=== PATIENT | male | born 1955 | race Caucasian/White ===

== ENCOUNTER → 2018-04-21 | Outpatient (CLI) | payer BC ==
[~2018-04-21] MED LIST: IOPAMIDOL 370 MG/ML 200 ML INFUS..BTL INJ ONE; SODIUM CHLORIDE 0.9% 50ML 50 ML ONE
[2018-04-21 09:11] LABS: BLOOD UREA NITROGEN 8 mg/dL (7-26); BUN/CREATININE RATIO 9 (6-25); CREATININE, SERUM 0.86 mg/dL (0.72-1.25); EST GLOMERULAR FILTRATION RATE > 60 ML/MIN (60-)
--- NOTE | 2018-04-21 11:39 | Diagnostic Imaging Report ---
CTA abdomen and pelvis with contrast with bilateral lower extremity runoff Clinical history: Bilateral leg pain, worsening; query stenosis. Comparison: None. Technique: Arterial phase CT abdomen and pelvis and bilateral lower extremities after administration of 100 mL Isovue-370 intravenous contrast. Volume rendered 3-D images of the arterial tree generated on an independent workstation under physician supervision. RADIATION DOSE: DLP: 889 mGy cm Dose modulation, iterative reconstruction, and/or weight based adjustment of the mA/kV was utilized to reduce the radiation dose to as low as reasonably achievable. FINDINGS: VASCULAR: Aortic dimensions: Diaphragmatic hiatus: 2.4 cm Level of the renal arteries: 2.1 cm Infrarenal aorta: 1.7 cm Right common iliac artery: 0.8 cm Left common iliac artery: 0.9 cm. No evidence of dissection or aneurysm. There is moderate atherosclerotic calcifications of the upper and mid abdominal aorta. Extensive calcified and non-calcified atherosclerotic changes of the distal aorta without stenosis. The celiac artery, SMA, and SHRUTI are patent. Renal arteries: Single bilateral renal arteries with atherosclerotic changes and no significant stenosis. Extensive atherosclerotic changes of bilateral common, external, and internal iliac arteries with multifocal mild stenoses. Mild to moderate stenoses at the origin of the right greater than left common iliac arteries. Bilateral common femoral arteries are patent. Right lower extremity: Mild atherosclerotic changes of the right common femoral and superficial femoral artery without significant stenosis. The profunda femoris artery is patent. The popliteal artery demonstrates mild atherosclerotic changes without stenosis. The tibioperoneal trunk is patent. Anterior tibial artery to its distal portion but is not visualized below the level of the ankle. The peroneal artery is patent to the lower leg, but is not visualized at the level of the ankle. The posterior tibial artery is patent throughout its course and supplies the foot. Left lower extremity: Mild atherosclerotic changes of the left common femoral and superficial femoral artery without significant stenosis. The profunda femoris artery demonstrates mild stenosis near the origin and is patent. The popliteal artery and tibioperoneal trunk is patent. Anterior tibial artery is patent throughout its course. The peroneal artery is patent to the lower leg, but is not visualized at the level of the ankle. The posterior tibial artery is patent until distally, but is not seen at the level of the ankle. NON-VASCULAR FINDINGS: Lung bases: Coronary atherosclerosis. Liver: Diffuse mild fatty liver. No evidence of focal mass. No evidence of biliary ductal dilatation. Pancreas: Unremarkable. Spleen: No splenomegaly. Adrenal glands: Unremarkable. Kidneys: No evidence of hydronephrosis, stone, or solid mass. Urinary bladder: Unremarkable. Bowel: Normal caliber. No evidence of bowel obstruction. The descending and sigmoid colon is decompressed and demonstrates mild fatty infiltration of the wall, which may represent sequela of prior inflammatory changes. Peritoneum: No free air or fluid. Lymph nodes: Normal Bones and soft tissues: No acute bony abnormality. Sclerotic area in the anterior inferior L1 and L2 vertebral bodies likely represent sclerotic end plate changes. IMPRESSION: No evidence of abdominal aortic aneurysm or dissection. Patent mesenteric and renal vasculature. Extensive atherosclerotic changes of the distal aorta and iliac vasculature. Mild to moderate stenoses of the origin of the common iliac arteries, right greater than left. Mild atherosclerotic changes of the right lower extremity vasculature with patent three-vessel runoff to the level of the ankle. Posterior tibial artery is patent to the foot. The anterior tibial and peroneal artery are not visualized below the lower leg into the ankle; findings are non-specific and given absence of significant atherosclerotic changes, these findings could represent slow flow rather than occlusion. Mild atherosclerotic changes of the left lower extremity vasculature with patent three-vessel runoff to the level of the ankle. Anterior tibial artery is patent throughout its course and supplies a patent dorsalis pedis. The peroneal artery and posterior tibial artery are not visualized below the lower leg into the ankle; findings are non-specific and given absence of significant atherosclerotic changes, these findings could represent slow flow rather than occlusion. Signed by: Dr. Jacqueline Rabago MD on 04/21/2018 11:36 AM
== END ==
LOC: CT 08:23
PROVIDERS: ATTEND Internal Medicine
DX: I73.9 Peripheral vascular disease, unspecified (principal); E78.3 Hyperchylomicronemia
CPT/HCPCS: 36415; 75635; 82565; 84520; Q9967

== ENCOUNTER → 2018-05-19 | Day surgery (SDC) | payer BC ==
[2018-05-16 13:21] LABS: BASOPHILS # (AUTO) 0.1 (0.0-0.1); BASOPHILS % 0.7 % (0.0-1.0); EOSINOPHILS # (AUTO) 0.1 (0.0-0.4); EOSINOPHILS % 1.9 % (0.0-6.0); HEMATOCRIT 40.6 % (38.2-49.6); HEMOGLOBIN 13.8 g/dL (14.0-18.0); LYMPHOCYTES # (AUTO) 2.7 (1.0-3.2); LYMPHOCYTES % 36.4 % (18.0-39.1); MEAN CORPUSCULAR HEMOGLOBIN 31.2 pg (28-32); MEAN CORPUSCULAR VOLUME 91.6 fL (81-99); MONOCYTES # (AUTO) 0.5 (0.2-0.8); MONOCYTES % 7.3 % (4.4-11.3); NEUTROPHILS # (AUTO) 3.9 (2.1-6.9); NEUTROPHILS % 53.4 % (38.7-80.0); PLATELET COUNT 252 x10e3/uL (140-360); RED BLOOD COUNT 4.43 x10e6/uL (4.3-5.7); RED CELL DISTRIBUTION WIDTH 12.7 % (11.7-14.4)
[2018-05-16 13:32] LABS: INR 0.84; PROTHROMBIN TIME 12.3 seconds (11.9-14.5)
[2018-05-16 13:33] LABS: PARTIAL THROMBOPLASTIN TIME 25.2 seconds (23.8-35.5)
[2018-05-16 13:40] LABS: ALANINE AMINOTRANSFERASE 36 IU/L (0-55); ALBUMIN/GLOBULIN RATIO 1.1 (0.8-2.0); ALKALINE PHOSPHATASE 33 IU/L (40-150); ANION GAP 13.7 mmol/L (8-16); BLOOD UREA NITROGEN 11 mg/dL (7-26); BUN/CREATININE RATIO 13 (6-25); CALCIUM 9.4 mg/dL (8.4-10.2); CARBON DIOXIDE 25 mmol/L (22-29); CHLORIDE 99 mmol/L (98-107); CHOL/HDL RATIO 2.4 (3.9-4.7); CHOLESTEROL 148 MD/DL (0-199); CREATININE, SERUM 0.82 mg/dL (0.72-1.25); EST GLOMERULAR FILTRATION RATE > 60 ML/MIN (60-); GLUCOSE 109 mg/dL (74-118); HDL CHOLESTEROL 61 MG/DL (40-60); LDL CHOLESTEROL 77 MG/DL (60-130); POTASSIUM 3.7 mmol/L (3.5-5.1); SODIUM 134 mmol/L (136-145); TRIGLYCERIDES 51 MG/DL (0-149)
[~2018-05-19] VITALS: Ht 170.2 cm; Wt 83.9 kg
[2018-05-19] VITALS (9 sets, daily range): BP systolic 125–154; BP diastolic 70–95
[~2018-05-19] MED LIST changes: +ALBUTEROL0.63 MG/3 INH; +ASPIR 8181 MG PO; +ASPIRIN 325 MG TAB ONE; +ATENOLOL50 MG PO; +BUPROPION XL150 MG PO; +CILOSTAZOL100 MG PO; +CLOPIDOGREL BISULFATE 75 MG TAB ONE; +CLOPIDOGREL75 MG PO; +COQ-10100 MG PO; +CRESTOR10 MG PO; +CYANOCOBALAMIN IM; +DILTIAZEM HCL60 MG PO; +FENTANYL CITRATE/PF 100MCG/2 ML INJ ONE; +HEPARIN SOD/SOD CHLORIDE 2,000 ML ONE; +IOPAMIDOL 300MG/ML 100 ML INFUS..BTL IV ONE; -IOPAMIDOL 370 MG/ML 200 ML INFUS..BTL INJ ONE; +ISOSORBIDE MONO20 MG PO; +LIDOCAINE HCL 1% LOCAL INJ 20 ML VIAL ONE; +MIDAZOLAM HCL 2 MG/2 ML VIAL ONE; +SODIUM CHLORIDE 0.9% 1000ML 1,000 ML ONE; -SODIUM CHLORIDE 0.9% 50ML 50 ML ONE; +THIAMINE H100 MG/1 M PO
--- OUTSIDE RECORDS SUMMARY | 2018-05-19 09:00 | XMS REPORT ---
Author Author [facility] Address Unknown Phone Unavailable Care Team Providers Care Husbandry Technician Name Role Phone Luis NIETO Unavailable Unavailable Problems This patient has no known problems. Allergies, Adverse Reactions, Alerts This patient has no known allergies or adverse reactions. Medications This patient has no known medications. Results Test Description Test Time Test Comments Text Results Atomic Results Result Comments CTA ABD/PEL/RUN OFF 2018-04-21 10:53:00 [place] [id number] Patient Name: YAEL DOUGLAS MR #: [id number] : 1955 Age/Sex: 62/M Req #: [id number] [facility] Physician: Ordered by: JANIA NIETO MD Report #: [id number] Location: CT Room/Bed: Procedure: [id number] CT/CTA ABD/PEL/RUN OFF Exam Date: 04/21/18 Exam Time: 0950 REPORT STATUS: Signed CTA abdomen and pelvis with contrast with bilateral low er extremity runoff Clinical history: Bilateral leg pain, worsening; query stenosis. Comparison: None. Technique: Arterial phase CT abdomen and pelvis and bilateral lower extremities after administration of 100 mL Isovue- 370 intravenous contrast. Volume rendered 3-D images of the arterial tree generated on an independent workstation under physician supervision. RADIATION DOSE: DLP: 889 mGy cm Dose modulation, iterative reconstruction, and/or weight based adjustment of the mA/kV was utilized to reduce the radiation dose to as low as reasonably achievable. FINDINGS: VASCULAR: Aortic dimensions: Diaphragmatic hiatus: 2.4 cm Level of the renal arteries: 2.1 cm Infrarenal aorta: 1.7 cm Right common iliac artery: 0.8 cm Left common iliac artery: 0.9 cm. No evidence of dissection or aneurysm. There is moderate atherosclerotic calcifications of the upper and mid abdominal aorta. Extensive calcified and non-calcified atherosclerotic changes of the distal aorta without stenosis. The celiac artery, SMA, and SHRUTI are patent. Renal arteries: Single bilateral renal arteries with atherosclerotic changes and no significant stenosis. Extensive atherosclerotic changes of bilateral common, external, and internal iliac arteries with multifocal mild stenoses. Mild to moderate stenoses at the origin of the right greater than left common iliac arteries. Bilateral common femoral arteries are patent. Right lower extremity: Mild atherosclerotic changes of the right common femoral and superficial femoral artery without significant stenosis. The profunda femoris artery is patent. The popliteal artery demonstrates mild atherosclerotic changes without stenosis. The tibioperoneal trunk is patent. Anterior tibial artery to its distal portion but is not visualized below the level of the ankle. The peroneal artery is patent to the lower leg, but is not visualized at the level of the ankle. The posterior tibial artery is patent throughout its course and supplies the foot. Left lower extremity: Mild atherosclerotic changes of the left common femoral and superficial femoral artery without significant stenosis. The profunda femoris artery demonstrates mild stenosis near the origin and is patent. The popliteal artery and tibioperoneal trunk is patent. Anterior tibial artery is patent throughout its course. The peroneal artery is patent to the lower leg, but is not visualized at the level of the ankle. The posterior tibial artery is patent until distally, but is not seen at the level of the ankle. NON-VASCULAR FINDINGS: Lung bases: Coronary atherosclerosis. Liver: Diffuse mild fatty liver. No evidence of focal mass. No evidence of biliary ductal dilatation. Pancreas: Unremarkable. Spleen: No splenomegaly. Adrenal glands: Unremarkable. Kidneys: No evidence of hydronephrosis, stone, or solid mass. Urinary bladder: Unremarkable. Bowel: Normal caliber. No evidence of bowel obstruction. The descending and sigmoid colon is decompressed and demonstrates mild fatty infiltration of the wall, which may represent sequela of prior inflammatory c hanges. Peritoneum: No free air or fluid. Lymph nodes: Normal Bones and soft tissues: No acute bony abnormality. Sclerotic area in the anterior inferior L1 and L2 vertebral bodies likely represent sclerotic end plate changes. IMPRESSION: No evidence of abdominal aortic aneurysm or dissection. Patent mesenteric and renal vasculature. Extensive atherosclerotic changes of the distal aorta and iliac vasculature. Mild to moderate stenoses of the origin of the common iliac arteries, right greater than left. Mild atherosclerotic changes of the right lower extremity vasculature with patent three-vessel runoff to the level of the ankle. Posterior tibial artery is patent to the foot. The anterior tibial and peroneal artery are not visualized below the lower leg into the ankle; findings are non-specific and given absence of significant atherosclerotic changes, these findings could represent slow flow rather than occlusion. Mild atherosclerotic changes of the left lower extremity vasculature with patent three-vessel runoff to the level of the ankle. Anterior tibial artery is patent throughout its course and supplies a patent dorsalis pedis. The peroneal artery and posterior tibial artery are not visualized below the lower leg into the ankle; findings are non-specific and given absence of significant atherosclerotic changes, these findings could represent slow flow rather than occlusion. Signed by: Dr. Sandro Washburn MD on 04/21/2018 11:36 AM Dictated By: SANDRO WASHBURN MD [id number] Transcribed By: SERVANDO on 04/21/18 1136 COPY TO: JANIA NIETO MD
--- NOTE | 2018-05-19 12:53 | NUR ---
Received patient to [facility] holding room 10. Patient s/p peripheral angiogram with Vascade closure devices to bilateral groins. Dressings to bilateral groins C/D/I. No bleeding or hematomas noted. Food tray ordered.
--- NOTE | 2018-05-19 14:45 | NUR ---
bedside report received from Antonietta Godoy RN. Alert oriented and appropriate, PERRLA, respirations even and unlabored to room air. Pulses x4 extremities equal and strong. Pedal pulses PT/DP palpable and marked. Cap fill brisk < 3 sec. Bilateral groin dressings intact, right groin w/ estimated 20% saturation. no gross s/s of hematoma. Skin warm and dry integrity appears intact. IV 20g to left forearm presents healthy w/o s/s of infiltration or complaint, 0.9% NS @150ml/hr. Abdomen soft and supple. pt offered toileting, denies need to urinate or defecate. No personal affects with patient. Family at bedside. Pt and family verbalizes understanding of POC for DC. Bedside telemetry trends reviewed. Currently w/o complaint of pain or need. DC education started. -[facility] [place]
--- NOTE | 2018-05-19 16:45 | NUR ---
Pt meets DC criteria. Bilateral groin assessed for s/s of complication and presence of hematoma. Bilateral lower extremities warm, dry, w/o discolor, and pulses present. IV removed from left hand. Distal tip appears intact. VS WNL. Pt denies pain, sob, or need at this time. Family at bedside. Review of discharge paperwork and follow up instructions. verbalized understanding. ambulated to restroom w/o distress or event. Pt to wheelchair and transported to front of hospital with positive affect. Transferred to private vehicle under own strength w/o incident with DC paperwork in hand. - cgf
--- NOTE | 2018-05-20 01:01 | Operative Report ---
DATE OF PROCEDURE: May 19, 2018 PERIPHERAL ANGIOGRAPHY AND INTERVENTION PROCEDURE INDICATION: Life-limiting claudication with exercise-induced drop in WILLIE and CT evidence of aortoiliac disease. PROCEDURES PERFORMED: 1. Abdominal aortogram with lower extremity runoff. 2. Iliac artery kissing stents (right common iliac artery stent and left common iliac artery stent) using Valeo 8 x 6 mm balloon expandable stents. 3. Vascade closure to each bilateral common femoral artery arteriotomies achieving adequate hemostasis. PROCEDURE COMPLICATIONS: None. ESTIMATED BLOOD LOSS: Less than 15 mL. PROCEDURE SUMMARY: After consent was obtained, patient was prepped and draped in a sterile fashion and the right femoral side was locally infiltrated with 2% lidocaine. Access was obtained with micropuncture kit and a 6-Romansh sheath was placed. An Advantage wire was used to navigate areas of common iliac artery stenosis and an Omniflush catheter was advanced over the wire into the distal descending abdominal aorta performing digital subtraction angiography. Renal arteries were patent so were the SMA, SHRUTI. The aortoiliac bifurcation has severe stenosis with the right common iliac artery 70% heavily calcified stenosis extending into the distal descending abdominal aorta and the left common iliac artery has focal 80% stenosis. It was decided to proceed with pre-dilatation after obtaining access to the left common femoral artery and upgrading sheath to 7-Romansh short sheath bilaterally. Advantage wires were positioned across the iliac artery stenosis and into the proximal descending thoracic aorta, and aspirin 325 mg and Plavix preload were administered. Pre-dilatation of the right common iliac artery was performed using Ultraverse balloon 7.0 x 40 inflated to 8 atmospheres. This was followed after adequate extension of calcific stenosis on the right common iliac artery extending into distal aorta with kissing stents extending the lilia into the distal descending abdominal aorta given plaque extension into the aorta itself. The 8 x 56 mm Valeo stents were deployed to the right common iliac artery at 10 atmospheres and left common iliac artery at 9 atmospheres with simultaneous kissing balloon inflations. Final angiography reveals excellent results, ISABEL-3 flow, less than 10% residual stenosis, no flow-limiting dissections. And no perforations. The rest of the angiographic findings on runoff were as follows: The internal and external iliac arteries, common femoral arteries, profunda femoris, SFA, popliteal, and anterior tibial, posterior tibial, and peroneal vessels are patent with less than 30% stenosis throughout with 3-vessel runoff to foot. CONCLUSION: Severe aortoiliac disease, now status post kissing stents. RECOMMENDATIONS: 1. Aspirin and Plavix. 2. Normal saline hydration. 3. Four hour bed rest post Vascade closure. 4. Outpatient followup in 2 to 4 weeks. Anticipate discharge later today once bed rest is complete. Job#: [id number]
== END | disposition home or self-care (01) ==
LOC: CATH LAB 08:57
PROVIDERS: ATTEND Internal Medicine Cardiovascular Disease
DX: I70.213 Atherosclerosis of native arteries of extremities with intermittent claudication, bilateral legs (principal); I70.0 Atherosclerosis of aorta; I25.10 Atherosclerotic heart disease of native coronary artery without angina pectoris; I10 Essential (primary) hypertension; E78.5 Hyperlipidemia, unspecified; R06.02 Shortness of breath; F17.210 Nicotine dependence, cigarettes, uncomplicated; Z01.810 Encounter for preprocedural cardiovascular examination; Z01.812 Encounter for preprocedural laboratory examination; Z79.02 Long term (current) use of antithrombotics/antiplatelets; Z79.82 Long term (current) use of aspirin; Z82.49 Family history of ischemic heart disease and other diseases of the circulatory system
CPT/HCPCS: 36415; 37221; 75630; 80053; 80061; 83036; 85025; 85610; 85730; 93005; C1725; C1760; C1766; C1769 ×2; C1876; J2001; J2250; J7030; Q9967; 37223

== ENCOUNTER → 2018-06-25 | Outpatient (CLI) | payer BC ==
[~2018-06-25] MED LIST changes: -ASPIRIN 325 MG TAB ONE; -CLOPIDOGREL BISULFATE 75 MG TAB ONE; -FENTANYL CITRATE/PF 100MCG/2 ML INJ ONE; -HEPARIN SOD/SOD CHLORIDE 2,000 ML ONE; -IOPAMIDOL 300MG/ML 100 ML INFUS..BTL IV ONE; +IOPAMIDOL 370 MG/ML 200 ML INFUS..BTL INJ ONE; -LIDOCAINE HCL 1% LOCAL INJ 20 ML VIAL ONE; -MIDAZOLAM HCL 2 MG/2 ML VIAL ONE; +SODIUM CHLORIDE 0.9% 100 ML 100 ML ONE; -SODIUM CHLORIDE 0.9% 1000ML 1,000 ML ONE; +SODIUM CHLORIDE 0.9% 50ML 0 ML ONE
[2018-06-25 08:20] LABS: BLOOD UREA NITROGEN 8 mg/dL (7-26); BUN/CREATININE RATIO 10 (6-25); CREATININE, SERUM 0.83 mg/dL (0.72-1.25); EST GLOMERULAR FILTRATION RATE > 60 ML/MIN (60-)
--- NOTE | 2018-06-25 10:46 | Diagnostic Imaging Report ---
CTA OF THE ABDOMEN AND PELVIS WITH CONTRAST. INDICATION: Right lower quadrant pain, stent placement COMPARISON: CTA abdomen/pelvis/lower extremities, 04/21/2018 TECHNIQUE: Abdomen and pelvis were scanned utilizing a multidetector helical scanner from the lung base to the pubic symphysis after administration of IV contrast. Coronal and sagittal reformations were obtained. CTA protocol was performed. Scan was performed during arterial phase. Volume rendered 3-D images of the arterial tree generated on an independent workstation under physician supervision. IV CONTRAST: 100 mL of Isovue-370 ORAL CONTRAST: None RADIATION DOSE: Total DLP: 596.06 mGy*cm Estimated effective dose: (DLP x 0.015 x size factor) mSv COMPLICATIONS: None Dose modulation, iterative reconstruction, and/or weight based adjustment of the mA/kV was utilized to reduce the radiation dose to as low as reasonably achievable. DISCUSSION: ABDOMEN AND PELVIS: LINES and TUBES: None. LOWER THORAX: Lung bases clear. Heart size normal. HEPATOBILIARY: Diffuse low-density of the liver relative to the spleen compatible with steatosis. No focal hepatic lesions. No biliary ductal dilation. GALLBLADDER: No radio-opaque stones or sludge. No wall thickening. SPLEEN: No splenomegaly. PANCREAS: No focal masses or ductal dilatation. ADRENALS: No adrenal nodules KIDNEYS/URETERS: Kidneys enhance symmetrically. No hydronephrosis. No cystic or solid mass lesions. No stones. GI TRACT: No abnormal distention, wall thickening, or evidence of bowel obstruction. The appendix is not conspicuously visualized. No right lower quadrant inflammatory stranding. PELVIC ORGANS/BLADDER: Urinary bladder unremarkable. No mass or fluid collection in the pelvis. LYMPH NODES: No lymphadenopathy. PERITONEUM / RETROPERITONEUM: No pneumoperitoneum or ascites. BONES: No acute or suspicious bony lesions. There are degenerative changes in the spine. SOFT TISSUES: Superficial surrounding soft tissue unremarkable. VESSELS: Abdominal aorta: The abdominal aorta is atherosclerotic with calcified and noncalcified plaque. No aneurysm or dissection. Celiac, SMA, SHRUTI and renal arteries are patent. Interval placement of bilateral iliac stents which extend above the aortic bifurcation into the lower abdominal aorta. Right iliac artery: Right iliac artery stent is patent and terminates just above the common iliac bifurcation. External and internal iliac arteries, and right common femoral artery, are patent. No iliac stenoses. No mass or hematoma adjacent to the iliac artery. Left iliac artery: Left iliac stent is patent and terminates just above the common iliac bifurcation. External and internal iliac arteries, and left common femoral artery, are patent. No iliac stenoses. No mass or hematoma adjacent to the iliac artery. IMPRESSION: 1. No CT evidence for acute abdominal or pelvic pathology. 2. No abdominal aortic aneurysm or dissection. Major branch vessels remain patent. 3. Interval placement of bilateral common iliac artery stents. The stents and iliac arteries remain patent. Previous iliac artery stenoses appear resolved. Signed by: Dr. Sharath Terrell M.D. on 06/25/2018 10:42 AM
== END ==
LOC: CT 07:32
PROVIDERS: ATTEND Internal Medicine Cardiovascular Disease
DX: R10.31 Right lower quadrant pain (principal); Z98.890 Other specified postprocedural states
CPT/HCPCS: 36415; 74174; 82565; 84520; Q9967

== ENCOUNTER → 2018-09-22 | Outpatient (CLI) | payer BC ==
[~2018-09-22] MED LIST changes: -IOPAMIDOL 370 MG/ML 200 ML INFUS..BTL INJ ONE; -SODIUM CHLORIDE 0.9% 100 ML 100 ML ONE; -SODIUM CHLORIDE 0.9% 50ML 0 ML ONE
--- NOTE | 2018-09-22 12:23 | Diagnostic Imaging Report ---
Pelvic ultrasound. History: Abdominal pain Comparison: <None available>. Discussion: Transabdominal evaluation of the pelvis was performed in the transverse and longitudinal planes. No mass is identified. Prevoid latter volume is 86 cc. Post void is 7.2 cc. Prostate volume is 5.2 cc. IMPRESSION: No evidence of mass or abscess. Signed by: Dr. Javi Cancino DO on 09/22/2018 12:20 PM
== END ==
LOC: US 10:05
PROVIDERS: ATTEND Internal Medicine
DX: G89.18 Other acute postprocedural pain (principal)
CPT/HCPCS: 76856

== ENCOUNTER → 2018-12-03 | Outpatient (CLI) | payer BC ==
--- NOTE | 2018-12-03 12:13 | Diagnostic Imaging Report ---
Exam: Lumbar spine series Clinical history: Sciatica Findings: There is no evidence of acute fracture or malalignment. The vertebral bodies and disc heights are well preserved. Small marginal osteophytes are noted. Atherosclerotic calcification of the aorta is noted. Impression: 1. No radiographic evidence of acute osseous injury or significant degenerative changes. If indicated, MR can be performed for further assessment. Signed by: Dr. Jase Munoz MD on 12/03/2018 12:10 PM
--- NOTE | 2018-12-03 12:15 | Diagnostic Imaging Report ---
Exam: Sacrum 2 views Clinical history: Lower back pain Findings: There is no evidence of acute fracture or malalignment. Narrowing of the L5-S1 disc space is noted likely degenerative in nature. Multiple phleboliths are seen in bilateral pelvic regions. The soft tissue is unremarkable. Impression: 1. No radiographic evidence of acute osseous injury. Degenerative disc disease is noted. Signed by: Dr. Jase Munoz MD on 12/03/2018 12:11 PM
== END ==
LOC: RAD 10:44
PROVIDERS: ATTEND Internal Medicine
DX: M54.31 Sciatica, right side (principal)
CPT/HCPCS: 72110; 72220

== ENCOUNTER → 2018-12-25 | Outpatient (CLI) | payer BC ==
--- NOTE | 2018-12-25 12:16 | Diagnostic Imaging Report ---
Examination: MRI SPINE LUMBAR WO CONTRAST History: Back pain radiating down the right lower extremity with associated numbness of the toes. Comparison studies: Lumbar spine x-ray 12/03/2018. Technique: Sagittal, coronal and axial T2 , sagittal T1 and STIR; axial spin density oblique. Findings: Number of lumbar vertebral bodies: Five. Alignment: Normal lordosis. No scoliosis. Soft tissues: No T2 hyperintense inflammatory changes. Posterior paraspinal soft tissues and muscles: No abnormality. Lower thoracic cord: Normal in signal and morphology. The tip of the conus is at T12. Cauda equina: No masses. No arachnoiditis. Vertebrae: No fractures, infection or neoplasm. Degenerative changes: L1-L2: Diffuse disc bulge and mild bilateral facet arthropathy result in mild bilateral neural foraminal narrowing. No canal stenosis. L2-L3: Asymmetric to the left disc bulge and mild bilateral facet arthropathy result in mild left neural foraminal narrowing. No right neural foraminal or canal stenosis. L3-L4: Diffuse disc bulge and mild bilateral facet arthropathy result in mild bilateral neural foraminal narrowing and mild canal stenosis. L4-L5: Diffuse disc bulge and mild ligamentum flavum thickening and moderate bilateral facet arthropathy results in severe right and moderate left neural foraminal narrowing and severe canal stenosis. L5-S1: Diffuse disc bulge and mild bilateral facet arthropathy result in mild bilateral neural foraminal narrowing and severe bilateral lateral recess narrowing with impingement of the bilateral descending S1 nerve roots. No canal stenosis. IMPRESSION: Degenerative changes from L1-L2 through L5-S1 with severe canal and severe right and moderate left foraminal stenoses at L4-L5. Impingement of the bilateral descending S1 nerve roots at L5-S1 due to a diffuse disc bulge. Mild canal stenosis at L3-L4. Signed by: Dr. Brenda Gamez M.D. on 12/25/2018 12:13 PM
== END ==
LOC: MRI 08:22
PROVIDERS: ATTEND Internal Medicine
DX: M54.31 Sciatica, right side (principal)
CPT/HCPCS: 72148

== ENCOUNTER → 2019-02-18 | Outpatient (CLI) | payer BC ==
--- NOTE | 2019-02-18 12:25 | Diagnostic Imaging Report ---
MRI of the right hip without contrast. History: Hip pain. Decreased range of motion. Pain not responding to conservative management. Technique: Multiplanar multisequence MRI of the head without contrast Findings: No acute fracture, subluxation or avascular necrosis. The prostate gland is enlarged and heterogeneous in appearance measuring 5.1 cm medial to lateral. Scattered degenerative change about the visualized lower lumbar spine and pelvis. Mild degenerative arthrosis in the right hip joint with thinning of the articular cartilage at the superior lateral acetabulum and adjacent femoral head. Complex tear of the anterior superior labrum with adjacent lobulated septated 2 cm para labral cyst. Small right hip joint effusion thought to be reactive. The remainder of the visualized ligaments and tendons about the hip are intact. No evidence to suggest greater trochanteric bursitis. The visualized muscles are normal in size, signal intensity and morphology. The visualized neurovascular bundles are intact. Impression: Mild degenerative arthrosis in the right hip joint with complex tear of the labrum, paralabral cyst and small right hip joint effusion thought to be reactive. The prostate gland is enlarged and heterogeneous in appearance measuring 5.1 cm medial to lateral. Correlate with laboratory analysis and physical examination. Signed by: Dr. Modesto Díaz M.D. on 02/18/2019 12:22 PM
--- NOTE | 2019-02-18 12:53 | Diagnostic Imaging Report ---
EXAMINATION: HIP RIGHT 2-3 VW (+/- PELVIS) INDICATION: Lower back pain, radiculopathy, hip pain COMPARISON: Sacrum radiographs of 11/25/2018, lumbar spine MRI of 12/25/2018 FINDINGS: AP view of the pelvis and AP and frog-leg view of the right hip demonstrate no acute fracture or dislocation. Alignment is anatomic. Mild degenerative changes of both hip joints. Nonobstructive bowel gas pattern. No free air. Phleboliths in the pelvis. Kissing bilateral iliac stents. IMPRESSION: No acute osseous injury. Mild degenerative changes of both hip joints. Signed by: Félix Carrillo MD on 02/18/2019 12:49 PM
== END ==
LOC: MRI 10:45
PROVIDERS: ATTEND Nurse Practitioner Family
DX: M54.5 Low back pain (principal); M54.16 Radiculopathy, lumbar region; M48.062 Spinal stenosis, lumbar region with neurogenic claudication; M25.551 Pain in right hip; M25.651 Stiffness of right hip, not elsewhere classified

== ENCOUNTER → 2020-12-13 | Outpatient (CLI) | payer BC ==
[~2020-12-13] MED LIST changes: +IOPAMIDOL 370 MG/ML 200 ML INFUS..BTL INJ ONE; +SODIUM CHLORIDE 0.9% 100 ML ONE
== END ==
LOC: CT 11:41
PROVIDERS: ATTEND Internal Medicine Cardiovascular Disease
DX: I70.219 Atherosclerosis of native arteries of extremities with intermittent claudication, unspecified extremity (principal)
CPT/HCPCS: 74174; J7050; Q9967

== ENCOUNTER → 2022-06-28 | Outpatient (CLI) | payer BC ==
[~2022-06-28] MED LIST changes: -IOPAMIDOL 370 MG/ML 200 ML INFUS..BTL INJ ONE; -SODIUM CHLORIDE 0.9% 100 ML ONE
== END ==
LOC: RAD 10:14
PROVIDERS: ATTEND Internal Medicine
DX: S43.401A Unspecified sprain of right shoulder joint, initial encounter (principal)

== ENCOUNTER 2023-01-24 11:54 | Inpatient (IN) | payer BC ==
[2023-01-24] MEDS ORDERED: LACTULOSE SYRUP 20 GM/30 ML UDC PO PRN (14:45)
[2023-01-24 15:00] LABS: CLARITY,URINE TURBID (CLEAR); KETONES,URINE TRACE (NEGATIVE); LEUKOCYTE ESTERASE ,URINE LARGE (NEGATIVE); NITRITE,URINE NEGATIVE (NEGATIVE); PROTEIN,URINE DIPSTICK 2+ (NEGATIVE)
[2023-01-24 15:01] LABS: URINE UROBILINOGEN 1 mg/dL (0.2 - 1)
[2023-01-24 15:05] LABS: COLOR,URINE GREEN (YELLOW)
[2023-01-24 15:12] VITALS: BP 133/67; PULSE 78; RESP 18; TEMP 97.9; O2SAT 96
[2023-01-24 15:18] LABS: AMORPHOUS SEDIMENT,URINE MODERATE (FEW); BACTERIA,URINE MODERATE /HPF; WBC,URINE (MAN) 0-5 /HPF (0-5)
[2023-01-24 15:32] LABS: BASOPHILS # (AUTO) 0.1 (0.0-0.1); EOSINOPHILS # (AUTO) 0.3 (0.0-0.4); EOSINOPHILS % 3.4 % (0.0-6.0); HEMATOCRIT 30.7 % (38.2-49.6); HEMOGLOBIN 11.4 g/dL (14.0-18.0); LYMPHOCYTES # (AUTO) 2.3 (1.0-3.2); LYMPHOCYTES % 23.4 % (18.0-39.1); MEAN CORPUSCULAR HEMOGLOBIN 31.5 pg (28-32); MEAN CORPUSCULAR HGB CONC 37.1 g/dL (31-35); MEAN CORPUSCULAR VOLUME 84.8 fL (81-99); MONOCYTES # (AUTO) 0.9 (0.2-0.8); NEUTROPHILS % 62.4 % (38.7-80.0); PLATELET COUNT 320 x10e3/uL (140-360); RED BLOOD COUNT 3.62 x10e6/uL (4.3-5.7); RED CELL DISTRIBUTION WIDTH 19.2 % (11.7-14.4); WHITE BLOOD COUNT 9.65 x10e3/uL (4.8-10.8)
[2023-01-24 15:38] LABS: INR 0.9; PROTHROMBIN TIME 12.7 seconds (11.9-14.5)
[2023-01-24 15:39] LABS: PARTIAL THROMBOPLASTIN TIME 29.4 seconds (23.8-35.5)
[2023-01-24 15:47] VITALS: BP 133/67; PULSE 78; RESP 18; TEMP 97.9; O2SAT 96
[2023-01-24 15:51] VITALS: PULSE 82; RESP 18; O2SAT 96
[2023-01-24 16:06] VITALS: BP 121/60; PULSE 57; RESP 19; TEMP 98.5; O2SAT 100
[2023-01-24 16:09] LABS: ALANINE AMINOTRANSFERASE 159 IU/L (0-55); ALBUMIN 2.9 g/dL (3.5-5.0); ALBUMIN/GLOBULIN RATIO 0.8 (0.8-2.0); ALKALINE PHOSPHATASE 273 IU/L (40-150); ANION GAP 14.3 mmol/L (8-16); BLOOD UREA NITROGEN 10 mg/dL (7-26); BUN/CREATININE RATIO 14 (6-25); CALCIUM 9.9 mg/dL (8.4-10.2); CARBON DIOXIDE 22 mmol/L (22-29); CHLORIDE 96 mmol/L (98-107); CREATININE, SERUM 0.71 mg/dL (0.72-1.25); GLUCOSE 146 mg/dL (74-118); POTASSIUM 3.3 mmol/L (3.5-5.1); SODIUM 129 mmol/L (136-145)
[2023-01-24] MEDS: SODIUM CHLORIDE 0.9% 1000ML 1,000 ML IV SCH (17:45)
[2023-01-24] MEDS ORDERED: IBUPROFEN 400 MG TAB PO PRN (20:00)
[2023-01-24] MEDS ORDERED: ALBUTEROL/IPRATROPIUM 3 ML NEB NEB PRN (20:00)
[2023-01-24] MEDS ORDERED: HYDRALAZINE HCL 20 MG/ML VIAL IV PRN (20:00)
[2023-01-24] MEDS ORDERED: TRAMADOL HCL 50 MG TAB PO PRN (20:00)
[2023-01-24 20:10] LABS: EOSINOPHILS % (MANUAL) 1 % (0-7); LYMPHOCYTES % (MANUAL) 27 % (19-48); MONOCYTES % (MANUAL) 4 % (3.4-9.0); NEUTROPHILS % (MANUAL) 66 % (40-74); PLATELET ESTIMATE ADEQUATE; PLATELET MORPHOLOGY COMMENT NORMAL; RBC MORPHOLOGY COMMENT NORMAL
[2023-01-24] MEDS ORDERED: POTASSIUM CHLORIDE 10MEQ EA PO ONE (20:19)
[2023-01-24] MEDS ORDERED: DILTIAZEM HCL60 MG PO (20:26)
[2023-01-24] MEDS ORDERED: ALBUTEROL0.63 MG/3 NEB (20:26)
[2023-01-24] MEDS ORDERED: OMEPRAZOLE40 MG PO (20:26)
[2023-01-24] MEDS ORDERED: CRESTOR10 MG PO (20:26)
[2023-01-24] MEDS ORDERED: ISOSORBIDE DINI20 MG PO (20:26)
[2023-01-24 20:33] VITALS: BP 121/60; PULSE 57; RESP 19; TEMP 98.5; O2SAT 100
[2023-01-24 20:57] VITALS: BP 144/71; PULSE 59; RESP 17; TEMP 98.5; O2SAT 99
[2023-01-25 00:38] LABS: % IRON SATURATION 19 % (15-50); IRON 62 ug/dL (65-175); TOTAL IRON BINDING CAPACITY 319 ug/dL (261-478); TRANSFERRIN 228 mg/dL (174-364)
[2023-01-25 00:39] VITALS: BP 152/77; PULSE 61; RESP 17; TEMP 98; O2SAT 98
[2023-01-25 04:40] VITALS: BP 132/73; PULSE 64; RESP 17; TEMP 97.8; O2SAT 98
[2023-01-25] MEDS: SODIUM CHLORIDE 0.9% 1000ML 1,000 ML IV SCH ×3 (04:51→21:17)
[2023-01-25 05:54] LABS: BASOPHILS # (AUTO) 0.1 (0.0-0.1); BASOPHILS % 1.5 % (0.0-1.0); EOSINOPHILS # (AUTO) 0.3 (0.0-0.4); EOSINOPHILS % 3.9 % (0.0-6.0); HEMATOCRIT 31.7 % (38.2-49.6); HEMOGLOBIN 11.8 g/dL (14.0-18.0); LYMPHOCYTES # (AUTO) 1.8 (1.0-3.2); LYMPHOCYTES % 22.9 % (18.0-39.1); MEAN CORPUSCULAR HEMOGLOBIN 31.9 pg (28-32); MEAN CORPUSCULAR HGB CONC 37.2 g/dL (31-35); MEAN CORPUSCULAR VOLUME 85.7 fL (81-99); MONOCYTES # (AUTO) 0.8 (0.2-0.8); MONOCYTES % 9.9 % (4.4-11.3); NEUTROPHILS # (AUTO) 4.8 (2.1-6.9); PLATELET COUNT 349 x10e3/uL (140-360); RED CELL DISTRIBUTION WIDTH 19.5 % (11.7-14.4); WHITE BLOOD COUNT 7.89 x10e3/uL (4.8-10.8)
[2023-01-25 06:30] LABS: ALBUMIN 2.5 g/dL (3.5-5.0); ALBUMIN/GLOBULIN RATIO 0.7 (0.8-2.0); ANION GAP 14.5 mmol/L (8-16); CALCIUM 9.6 mg/dL (8.4-10.2); CHOL/HDL RATIO 34.4 (3.9-4.7); CREATININE, SERUM 0.72 mg/dL (0.72-1.25); POTASSIUM 3.5 mmol/L (3.5-5.1)
[2023-01-25 06:56] LABS: THYROID STIMULATING HORMONE 0.373 uIU/mL (0.350-4.940)
[2023-01-25 09:13] VITALS: BP 142/81; PULSE 68; RESP 18; TEMP 98.2; O2SAT 100
[2023-01-25 21:16] VITALS: BP 141/73; PULSE 60; RESP 18; TEMP 98.5; O2SAT 97
[2023-01-25 22:31] VITALS: BP 141/73; PULSE 60; RESP 18; TEMP 98.5; O2SAT 97
[2023-01-26 00:32] VITALS: BP 134/68; PULSE 69; RESP 19; TEMP 98.8; O2SAT 99
[2023-01-26] MEDS: SODIUM CHLORIDE 0.9% 1000ML 1,000 ML IV SCH (05:06)
[2023-01-26 05:07] VITALS: BP 161/68; PULSE 67; RESP 20; TEMP 99.1; O2SAT 100
[2023-01-26 08:28] VITALS: BP 148/87; PULSE 62; RESP 15; TEMP 99; O2SAT 99
[2023-01-26] MEDS ORDERED: CYANOCOBALAMIN INJ 1,000 MCG/ML VIAL IM SCH (09:00)
[2023-01-26] MEDS ORDERED: IRON SUCROSE 100 MG in SODIUM CHLORIDE 0.9% 100 ML IV SCH (09:00)
[2023-01-26 10:04] VITALS: BP 148/87; PULSE 62; RESP 15; TEMP 99; O2SAT 99
[2023-01-26 12:51] VITALS: BP 149/80; PULSE 70; RESP 20; TEMP 98.4; O2SAT 100
== END 2023-01-26 16:17 | DRG 441 ==
LOC: MED/SURG3 13:24
PROVIDERS: ADMIT Internal Medicine; ATTEND Internal Medicine
DX: K72.00 Acute and subacute hepatic failure without coma (principal); K83.1 Obstruction of bile duct; B19.9 Unspecified viral hepatitis without hepatic coma; R19.09 Other intra-abdominal and pelvic swelling, mass and lump; E78.5 Hyperlipidemia, unspecified; J44.9 Chronic obstructive pulmonary disease, unspecified; E80.6 Other disorders of bilirubin metabolism; F10.10 Alcohol abuse, uncomplicated; K76.0 Fatty (change of) liver, not elsewhere classified; Z20.822 Contact with and (suspected) exposure to COVID-19
CPT/HCPCS: 36415; 71045; 74181; 76700; 80053; 80061; 81001; 82248; 82607; 82746; 83036; 83540; 83615; 84155; 84443; 84466; 85025; 85045; 85610; 85730; 86039; 86255; 86301; 87086; 94799; J1756; J2543; J3420; J7030; J7050; U0002